=== PATIENT | male | born 1975 | race Hispanic/Latino ===

== ENCOUNTER 2021-07-02 23:29 | Inpatient (IN) ==
[2021-07-02] MEDS ORDERED: DEXAMETHASONE 10 MG/ML VIAL IV ONE (23:41)
[2021-07-02] MEDS ORDERED: ACETAMINOPHEN 325 MG TABLET PO ONE (23:47)
--- NOTE | 2021-07-02 23:47 | Emergency Department Note ---
HPI General Chief complaint: Shortness of Breath/Dyspnea Stated complaint: shortness of breath Time Seen by Provider: 07/02/21 23:40 Source: family Mode of arrival: EMS Limitations: no limitations History of Present Illness HPI Narrative: Narrative: 46 yo M w/ h/o possible autoimmune d/o (ongoing w/u) and COVID19 (Dx 06/13) p/w progressive SOB. He reports that he has been feeling SOB since the last week of May, which has been getting progressively worse, to the point that he is now unable to ambulate a few steps w/o markedly increased WOB and fatigue. He additionaly has a cough which he reports as "wet" but hasn't seen sputum, and body aches. He has not had any rapid worsening, just a slow progression. He called EMS tonight as he felt too SOB and when they arrived his RA SaO2 was 86%. He came up to the 90s w/ 6L NC en route. Related Data Previous Rx's Medication Instructions Recorded albuterol sulfate 90 mcg/actuation 2 puff INHALATION .q4-6h PRN #8.5 g 06/13/21 aerosol inhaler Allergies Allergy/AdvReac Type Severity Reaction Status Date / Time No Known Drug Allergies Allergy Verified 06/13/21 14:04 Review of Systems ROS ROS Narrative: Narrative: All systems ED: reviewed and negative except as stated. [facility] Narrative Patient History Narrative: Narrative: Medical/Surgical/Family History All Active Problems (Updated 07/03/21 @ 03:10 by Delano Bernal MD) Acute dyspnea (Acute) Pneumonia due to 2019 novel coronavirus (Acute) Cough (Acute) Community acquired bacterial pneumonia (Acute) Open wound (Acute) Bullae (Acute) Bilateral leg pain (Acute) Bilateral leg edema (Acute) Maxillary sinusitis (Acute) Dyspnea (Acute) Upper respiratory infection (Acute) Urinary retention due to benign prostatic hyperplasia (Acute) Medical History Autoimmune disease Cough Surgical History History of lumbar spinal fusion Family History Other Unknown family medical history Social History Smoking Status: Current every day smoker Alcohol Intake Frequency: 0-2 drinks per day Substance Use: does not use Exam Narrative Narrative: Narrative: General Limitations: no limitations General appearance: Present alert and in distress (mild d/t SOB) Head Head: Present atraumatic and normocephalic ENT ENT: Present normal oropharynx and mucous membranes moist Chest Chest: Present normal inspection and symmetric chest wall rise Respiratory Respiratory: Present normal lung sounds bilaterally and other (no respiratory distress but increased WOB w/ 4-5 word dyspnea); Absent rales/crackles, wheezes and stridor Cardiovascular Cardiovascular: Present regular rate, normal rhythm, +S1, +S2 and other (2+ B/L radial pulses); Absent systolic murmur and diastolic murmur Adbominal Abdominal: Present soft and normal bowel sounds; Absent distention and tenderness Extremities Extremities: Absent pedal edema Neurological Neurological: Present alert and oriented X3 Psychiatric Psychiatric: Present normal affect Skin Skin: Present warm (WNL) and dry Course Vital Signs Vital signs: Vital Signs Temperature 102.7 F H 07/02/21 23:33 Pulse Rate 107 H 07/02/21 23:33 Respiratory Rate 24 H 07/02/21 23:33 Blood Pressure 137/79 07/02/21 23:33 Pulse Oximetry (%) 94 07/02/21 23:33 Temperature 102.7 F H 07/03/21 00:03 Pulse Rate 57 L 07/03/21 03:32 Respiratory Rate 25 H 07/03/21 03:32 Blood Pressure 98/62 07/03/21 03:32 Pulse Oximetry (%) 98 07/03/21 03:32 MDM MDM Narrative Medical decision making narrative: Narrative: 46 yo COVID + M p/w increasing SOB, hypoxia. DDx - COVID19, PE, myocarditis, sepsis, PNA Pt presented w/ increased WOB, sats in the 90s on 5L NC. His Hx was strongly suggestive of COVID19 PNA. While his rapid test here was negative, he had a positive PCR on 06/13, and his CXR was c/w COVID19. While proceeding w/ W/U I started him empirically on a dose of decadron 6mg IV. I considered PE but there was not a sudden worsening in his SX, and he was responding well to NC supplementation. Additionally his EKG showed no strong evidence of R heart strain, and other than COVID19 he did not have any apparent risk factors for PE. I did not feel that CTA was indicated. I checked an EKG, which showed no evidence of ischemia. I considered myocarditis/pericarditis but this was unlikely w/ no peripheral edema, no tachycardia out of proportion to fever, no cardiomegaly on CXR. While pt met SIRS criteria, his overall picture was c/w COVID19. I did not feel that bacterial PNA was likely, and noted that he had already been Tx'd empirically for PNA w/ doxycycline while his COVID test was pending. Thus I did not feel that abx were indicated here. I did note that he had some mild asymptomatic hyponatremia, but IVF were not required for this. I reviewed his case w/ Dr Mancilla our hospitalist. He agreed w/ local admission here to med surg w/ plan to move up to PCU PRN. We discussed the option of remdesivir and both agreed this was reasonable. He requested that I add on a CRP and BMP for him to F/U on. Pt has remained stable through his ED evaluation. Lab Data Lab results reviewed: Yes I reviewed the patient's lab results. Result diagrams: 07/02/21 23:58 07/02/21 23:58 Labs: Lab Results 07/02/21 07/02/21 07/02/21 Range/Units 23:58 23:58 23:58 WBC 13.8 H (4.5-11.0) K/mcL RBC 4.93 (4.63-6.08) M/mcL Hgb 13.3 L (13.7-17.5) g/dL Hct 39.3 L (40.1-51.0) % MCV 79.7 L (80.0-100.0) fL MCH 27.0 (26.0-34.0) pg MCHC 33.8 (31.0-36.0) g/dL RDW 14.6 H (11.5-14.5) % Plt Count 425 (140-440) K/mcL MPV 10.6 H (7.4-10.4) fL Neut % (Auto) 89.4 H (38.0-78.0) % Lymph % (Auto) 5.5 L (15.5-49.0) % [place] % (Auto) 5.0 (1.0-12.0) % Eos % (Auto) 0 (0.0-7.0) % Baso % (Auto) 0.1 (0.0-2.0) % Lymph # (Auto) 0.76 L (1.50-4.80) K/mcL [place] # (Auto) 0.69 (0.10-0.90) K/mcL Eos # (Auto) 0 (0.00-0.70) K/mcL Baso # (Auto) 0.01 (0.00-0.30) K/mcL Absolute Neutrophils 12.38 H (1.80-8.00) K/mcL ABG Methemoglobin (0.4-1.5) % VBG pH (7.32-7.42) U VBG pCO2 (41.0-51.0) mmHg VBG pO2 (25.0-40.0) mmHg VBG HCO3 (24.0-28.0) mmol/L VBG Total CO2 (25.0-29.0) mmol/L VBG O2 Saturation (40.0-70.0) % VBG Base Excess (-2-2) VBG Lactic Acid 2.0 (0.5-2.0) mmol/L Carboxyhemoglobin (0.0-1.5) % THgb Total Hemoglobin (13.5-16.5) gm/Dl Sodium 126 L (133-145) mmol/L Potassium 4.2 (3.3-5.1) mmol/L Chloride 87 L (96-108) mmol/L Carbon Dioxide 24 (22-30) mmol/L Anion Gap 15.0 (8.0-16.0) BUN 11 (6-20) mg/dL Creatinine 0.8 (0.7-1.2) mg/dL GFR Calculation 105 Glucose 177 H (70-105) mg/dL Calcium 8.3 L (8.6-10.4) mg/dL Total Bilirubin 0.7 (0.1-1.0) mg/dL AST 86 H (<40) U/L ALT 59 H (<40) U/L Alkaline Phosphatase 265 H (39-117) U/L C-React Prot High Sens (1.0-3.0) mg/L Total Protein 5.9 (5.9-8.4) gm/dL Albumin 2.8 L (3.2-5.2) gm/dL Globulin 3.1 (2.2-3.7) gm/dL Albumin/Globulin Ratio 0.9 L (1.0-2.3) Procalcitonin (<0.10) ng/mL 07/02/21 07/03/21 07/03/21 Range/Units 23:58 03:05 03:06 WBC (4.5-11.0) K/mcL RBC (4.63-6.08) M/mcL Hgb (13.7-17.5) g/dL Hct (40.1-51.0) % MCV (80.0-100.0) fL MCH (26.0-34.0) pg MCHC (31.0-36.0) g/dL RDW (11.5-14.5) % Plt Count (140-440) K/mcL MPV (7.4-10.4) fL Neut % (Auto) (38.0-78.0) % Lymph % (Auto) (15.5-49.0) % [place] % (Auto) (1.0-12.0) % Eos % (Auto) (0.0-7.0) % Baso % (Auto) (0.0-2.0) % Lymph # (Auto) (1.50-4.80) K/mcL [place] # (Auto) (0.10-0.90) K/mcL Eos # (Auto) (0.00-0.70) K/mcL Baso # (Auto) (0.00-0.30) K/mcL Absolute Neutrophils (1.80-8.00) K/mcL ABG Methemoglobin 0.3 L (0.4-1.5) % VBG pH 7.49 H (7.32-7.42) U VBG pCO2 34.5 L (41.0-51.0) mmHg VBG pO2 132.6 H (25.0-40.0) mmHg VBG HCO3 25.7 (24.0-28.0) mmol/L VBG Total CO2 26.8 (25.0-29.0) mmol/L VBG O2 Saturation 93.5 H (40.0-70.0) % VBG Base Excess 3 H (-2-2) VBG Lactic Acid (0.5-2.0) mmol/L Carboxyhemoglobin 5.1 H (0.0-1.5) % THgb Total Hemoglobin 11.9 L (13.5-16.5) gm/Dl Sodium (133-145) mmol/L Potassium (3.3-5.1) mmol/L Chloride (96-108) mmol/L Carbon Dioxide (22-30) mmol/L Anion Gap (8.0-16.0) BUN (6-20) mg/dL Creatinine (0.7-1.2) mg/dL GFR Calculation Glucose (70-105) mg/dL Calcium (8.6-10.4) mg/dL Total Bilirubin (0.1-1.0) mg/dL AST (<40) U/L ALT (<40) U/L Alkaline Phosphatase (39-117) U/L C-React Prot High Sens 179.1 H (1.0-3.0) mg/L Total Protein (5.9-8.4) gm/dL Albumin (3.2-5.2) gm/dL Globulin (2.2-3.7) gm/dL Albumin/Globulin Ratio (1.0-2.3) Procalcitonin 0.64 H (<0.10) ng/mL ED POC Tests ED POC Tests: RITESH - SARS Antigen Negative CC TIME Critical Care Time Critical Care Time: Yes Total Critical Care Time: 35 Attestation: The very real possibility of disability or existed without emergent intervention. Organ systems at risk included pulmonary. Interventions included supplemental O2, decadron, reviewing of labs and imaging, and d/w hospitalist. No procedures were required. Discharge Plan Patient/Caregiver Discharge Instructions Pt seen by MOTOR VEHICLE TECHNICIAN/PA only: No Clinical Impression: Acute dyspnea, Pneumonia due to 2019 novel coronavirus Patient Disposition: Xfer As Inpt ([facility]) Condition: Serious Discharge Date/Time: 07/03/21 03:39
[2021-07-03 01:30] LABS: Basophils # (Auto) 0.01 K/mcL (0.00-0.30); Basophils % (Auto) 0.1 % (0.0-2.0); Eosinophils # (Auto) 0 K/mcL (0.00-0.70); Eosinophils % (Auto) 0 % (0.0-7.0); Hematocrit 39.3 % (40.1-51.0); Hemoglobin 13.3 g/dL (13.7-17.5); Lymphocytes # (Auto) 0.76 K/mcL (1.50-4.80); Lymphocytes % (Auto) 5.5 % (15.5-49.0); Mean Cell Volume 79.7 fL (80.0-100.0); Mean Corpuscular HGB Conc 33.8 g/dL (31.0-36.0); Mean Platelet Volume 10.6 fL (7.4-10.4); Monocytes # (Auto) 0.69 K/mcL (0.10-0.90); Platelet Count 425 K/mcL (140-440); RBC 4.93 M/mcL (4.63-6.08); Red Cell Distribution Width 14.6 % (11.5-14.5); WBC 13.8 K/mcL (4.5-11.0)
[2021-07-03 01:44] LABS: ALT/SGPT 59 U/L (<40); AST/SGOT 86 U/L (<40); Albumin 2.8 gm/dL (3.2-5.2); Albumin/Globulin Ratio 0.9 (1.0-2.3); Alkaline Phosphatase 265 U/L (39-117); Bilirubin,Total 0.7 mg/dL (0.1-1.0); Blood Urea Nitrogen 11 mg/dL (6-20); Calcium 8.3 mg/dL (8.6-10.4); Carbon Dioxide 24 mmol/L (22-30); Chloride 87 mmol/L (96-108); Globulin 3.1 gm/dL (2.2-3.7); Glomerular Filtration Rate 105; Glucose 177 mg/dL (70-105)
[2021-07-03] MEDS ORDERED: REMDESIVIR 200 MG in 0.9 % SODIUM CHLORIDE 250 ML IV ONE (02:49)
[2021-07-03] MEDS ORDERED: ACETAMINOPHEN 325 MG TABLET PO PRN (02:56)
[2021-07-03 03:32] LABS: ABG Methemoglobin 0.3 % (0.4-1.5); Total Hemoglobin 11.9 gm/Dl (13.5-16.5); VBG Base Excess 3 (-2-2); VBG HCO3 25.7 mmol/L (24.0-28.0); VBG Oxygen Saturation 93.5 % (40.0-70.0); VBG PCO2 34.5 mmHg (41.0-51.0); VBG PH 7.49 U (7.32-7.42); VBG PO2 132.6 mmHg (25.0-40.0); VBG Total CO2 26.8 mmol/L (25.0-29.0)
--- NOTE | 2021-07-03 07:45 | XRay Report ---
HISTORY: COVID pneumonia, cough, shortness of breath FINDINGS: Moderate diffuse alveolar infiltrates are present in both lungs. This has a patchy distribution. These have become worse bilaterally since 06/13/21. Lung volumes are normal. No pleural effusion is present. The heart size is normal. No adenopathy is detected. IMPRESSION: Worsening bilateral pneumonia Interpreted and Authenticated by: Yosef Rankin 07/03/21
[2021-07-03] MEDS ORDERED: ONDANSETRON 4 MG/2 ML VIAL IV PRN ×2 (07:57→15:44)
[2021-07-03] MEDS ORDERED: ALBUTEROL SULFATE 2.5 MG/3 ML NEBULIZER NEB PRN ×2 (07:57→15:44)
[2021-07-03 08:48] LABS: Neutrophils % (Auto) 89.4 % (38.0-78.0)
[2021-07-03] MEDS ORDERED: ENOXAPARIN 40 MG/0.4 ML SYRINGE SQ SCH (09:00)
[2021-07-03] MEDS ORDERED: DEXAMETHASONE 10 MG/ML VIAL IV SCH (09:00)
[2021-07-03] MEDS ORDERED: DOCUSATE SODIUM 100 MG CAPSULE PO SCH (09:00)
[2021-07-03] MEDS ORDERED: cefTRIAXone 2 GM in DEXTROSE 5% IN WATER 50 ML IV SCH (09:00)
[2021-07-03 09:49] LABS: Blood Urea Nitrogen 13 mg/dL (6-20); Calcium 8.4 mg/dL (8.6-10.4); Carbon Dioxide 23 mmol/L (22-30); Chloride 95 mmol/L (96-108); Glomerular Filtration Rate 119; Glucose 177 mg/dL (70-105)
[2021-07-03] MEDS ORDERED: AZITHROMYCIN 500 MG in DEXTROSE 5% IN WATER 250 ML IV SCH (10:00)
[2021-07-03 10:37] LABS: ALT/SGPT 64 U/L (<40); AST/SGOT 88 U/L (<40); Alkaline Phosphatase 246 U/L (39-117)
[2021-07-03] MEDS ORDERED: IOPAMIDOL 100 ML BOTTLE IV ONE ×2 (13:28→15:44)
--- NOTE | 2021-07-03 13:37 | Cat Scan Report ---
History: COVID pneumonia, acute hypoxia, elevated serum d-dimer level, evaluate for pulmonary emboli TECHNIQUE: Following injection of intravenous nonionic contrast, pulmonary arterial phase images were acquired. Sagittal, coronal and axial MIPS images were created. The radiation exposure was limited using dose reduction technology. FINDINGS: The pulmonary arteries are normal in caliber and there are no intraluminal filling defects. The aorta is normal in caliber. There is no atherosclerosis aneurysm or dissection. The heart is normal in size and contour. No pleural or pericardial effusion are present. The patient has moderate bilateral pneumonia. There is a mosaic distribution of groundglass alveolar infiltrates throughout both lungs. There is sparing of the right upper lobe. The greatest consolidation is in the medial basal segments of both lower lobes. There is also mild bronchial wall thickening in both lung bases due to bronchitis. There is no mucus plugging. The mainstem bronchi and trachea are normal. No pleural effusion or pneumothorax are present. There are a few small reactive lymph nodes in both haider and mediastinum. IMPRESSION: No evidence of pulmonary emboli Moderate widespread COVID pneumonia Interpreted and Authenticated by: Yosef Rankin 07/03/21
[2021-07-03] MEDS ORDERED: 0.9 % SODIUM CHLORIDE 10 ML SYRINGE IV SCH (14:00)
[2021-07-03] MEDS ORDERED: 0.9 % SODIUM CHLORIDE 1,000 ML IV SCH ×2 (14:45→15:44)
--- NOTE | 2021-07-03 14:45 | Internal Med History&Physical ---
HPI History of Present Illness Patient information: Note initiated : 07/03/21 at 2:45 pm Service Date, if different from initiated Date: [] Patient: Cash Ruvalcaba a 46 y/o M admitted on 07/03/21 for shortness of breath. Chief Complaint: [] History of present illness: Mr. Ruvalcaba is a 46 year old with a history of possible autoimmune disease only undergoing work-up, and in 19 diagnosed at 06/13/21 with a SARS-CoV-2 PCR who presented to the ED for progressive shortness of breath. Patient was found to be hypoxic in the ED, initially requiring 6 L/min nasal cannula oxygen. Work-up in the ED included CBC which showed leukocytosis, chemistry panel showed hyponatremia, evaded D-dimer 1.14, chest x- ray showed bilateral pulmonary infiltrates. Patient also had a CTA of his chest which was negative for PE but consistent with COVID-19 pneumonia. Pro calcitonin was 0.64, CRP 15.1. SARS-CoV-2 PCR, both ADAMS and PANTHER, resulted as not detected. Respiratory panel resulted as not detected for influenza A and B, parainfluenza, human metapneumovirus, adenovirus. Rhinovirus was detected. The patient was started on IV fluids, admitted for acute hypoxic respiratory failure secondary likely secondary to ARDS presumably secondary to recent COVID-19. Review of systems: unable to obtain due to lethargy Physical exam General: Difficult to arouse 46-year-old male. Head: Atraumatic, normal inspection. Eyes: normal appearance, no scleral icterus. Neck: full ROM Respiratory: nasal canula oxygen in no apparent respiratory distress. Cardiovascular: normal rate and rhythm, S1, S2. GI/Abdominal: soft, nontender, no guarding. Extremities: full range of motion, nontender. Neurological: CN II-XII intact, intact motor, intact sensation. Psychiatric: lethargic Skin: warm, normal color PFSH PFSH All Active Problems (Updated 07/03/21 @ 03:10 by Delano Bernal MD) Acute dyspnea (Acute) Pneumonia due to 2019 novel coronavirus (Acute) Cough (Acute) Community acquired bacterial pneumonia (Acute) Open wound (Acute) Bullae (Acute) Bilateral leg pain (Acute) Bilateral leg edema (Acute) Maxillary sinusitis (Acute) Dyspnea (Acute) Upper respiratory infection (Acute) Urinary retention due to benign prostatic hyperplasia (Acute) Medical History Autoimmune disease Cough Surgical History History of lumbar spinal fusion Family History Other Unknown family medical history Social History alcohol intake frequency: 0-2 drinks per day substance use type: does not use MEDS/ALLERGIES Home Medications and Allergies Home Medications Medication Instructions Recorded Confirmed Type albuterol sulfate 90 mcg/actuation 2 puff INHALATION .q4-6h PRN #8.5 g 06/13/21 07/03/21 Rx aerosol inhaler Allergies Allergy/AdvReac Type Severity Reaction Status Date / Time No Known Drug Allergies Allergy Verified 06/13/21 14:04 EXAM Constitutional Vitals: Temp Pulse Resp BP Pulse Ox 97.4 F 53 L 18 90/59 95 07/03/21 12:00 07/03/21 12:00 07/03/21 12:00 07/03/21 12:00 07/03/21 12:00 DATA Data Completed and Pending Labs: Labs from last 24 hours 07/03/21 07/03/21 07/03/21 08:15 08:15 08:15 WBC RBC Hgb Hct MCV MCH MCHC RDW Plt Count MPV Neut % (Auto) Lymph % (Auto) [place] % (Auto) Eos % (Auto) Baso % (Auto) Lymph # (Auto) [place] # (Auto) Eos # (Auto) Baso # (Auto) Absolute Neutrophils D-Dimer 1.14 H ABG Methemoglobin VBG pH VBG pCO2 VBG pO2 VBG HCO3 VBG Total CO2 VBG O2 Saturation VBG Base Excess VBG Lactic Acid Carboxyhemoglobin Total Hemoglobin Sodium Potassium Chloride Carbon Dioxide Anion Gap BUN Creatinine GFR Calculation Glucose Calcium Total Bilirubin AST 88 H ALT 64 H Alkaline Phosphatase 246 H C-Reactive Protein 15.10 H C-React Prot High Sens Total Protein Albumin Globulin Albumin/Globulin Ratio Procalcitonin 07/03/21 07/03/21 07/03/21 08:15 03:06 03:05 WBC RBC Hgb Hct MCV MCH MCHC RDW Plt Count MPV Neut % (Auto) Lymph % (Auto) [place] % (Auto) Eos % (Auto) Baso % (Auto) Lymph # (Auto) [place] # (Auto) Eos # (Auto) Baso # (Auto) Absolute Neutrophils D-Dimer ABG Methemoglobin 0.3 L VBG pH 7.49 H VBG pCO2 34.5 L VBG pO2 132.6 H VBG HCO3 25.7 VBG Total CO2 26.8 VBG O2 Saturation 93.5 H VBG Base Excess 3 H VBG Lactic Acid Carboxyhemoglobin 5.1 H Total Hemoglobin 11.9 L Sodium 132 L Potassium 4.1 Chloride 95 L Carbon Dioxide 23 Anion Gap 14.0 BUN 13 Creatinine 0.6 L GFR Calculation 119 Glucose 177 H Calcium 8.4 L Total Bilirubin AST ALT Alkaline Phosphatase C-Reactive Protein C-React Prot High Sens 179.1 H Total Protein Albumin Globulin Albumin/Globulin Ratio Procalcitonin 07/02/21 07/02/21 07/02/21 23:58 23:58 23:58 WBC RBC Hgb Hct MCV MCH MCHC RDW Plt Count MPV Neut % (Auto) Lymph % (Auto) [place] % (Auto) Eos % (Auto) Baso % (Auto) Lymph # (Auto) [place] # (Auto) Eos # (Auto) Baso # (Auto) Absolute Neutrophils D-Dimer ABG Methemoglobin VBG pH VBG pCO2 VBG pO2 VBG HCO3 VBG Total CO2 VBG O2 Saturation VBG Base Excess VBG Lactic Acid 2.0 Carboxyhemoglobin Total Hemoglobin Sodium 126 L Potassium 4.2 Chloride 87 L Carbon Dioxide 24 Anion Gap 15.0 BUN 11 Creatinine 0.8 GFR Calculation 105 Glucose 177 H Calcium 8.3 L Total Bilirubin 0.7 AST 86 H ALT 59 H Alkaline Phosphatase 265 H C-Reactive Protein C-React Prot High Sens Total Protein 5.9 Albumin 2.8 L Globulin 3.1 Albumin/Globulin Ratio 0.9 L Procalcitonin 0.64 H 07/02/21 23:58 WBC 13.8 H RBC 4.93 Hgb 13.3 L Hct 39.3 L MCV 79.7 L MCH 27.0 MCHC 33.8 RDW 14.6 H Plt Count 425 MPV 10.6 H Neut % (Auto) 89.4 H Lymph % (Auto) 5.5 L [place] % (Auto) 5.0 Eos % (Auto) 0 Baso % (Auto) 0.1 Lymph # (Auto) 0.76 L [place] # (Auto) 0.69 Eos # (Auto) 0 Baso # (Auto) 0.01 Absolute Neutrophils 12.38 H D-Dimer ABG Methemoglobin VBG pH VBG pCO2 VBG pO2 VBG HCO3 VBG Total CO2 VBG O2 Saturation VBG Base Excess VBG Lactic Acid Carboxyhemoglobin Total Hemoglobin Sodium Potassium Chloride Carbon Dioxide Anion Gap BUN Creatinine GFR Calculation Glucose Calcium Total Bilirubin AST ALT Alkaline Phosphatase C-Reactive Protein C-React Prot High Sens Total Protein Albumin Globulin Albumin/Globulin Ratio Procalcitonin A/P Narrative A/P Narrative: Assessment: 46-year-old male recently diagnosed with COVID-19 on 06/13/2021 presented to the ED for progressive dyspnea now admitted for acute hypoxic respiratory failure likely secondary to ARDS due to recent COVID-19. Subsequent SARS-CoV-2 PCR were negative x2. Respiratory panel negative for influenza, parainfluenza, human metapneumovirus, adenovirus. Rhinovirus was detected however that would be an unusual cause for the patient's presentation. CTA chest was negative for pulmonary embolism however positive for moderate widespread pneumonia. #Acute hypoxic respiratory failure #Bilateral pneumonia with concern for ARDS #Recent COVID-19 (06/13/2021) -positive Noti 06/13 -negative Noti and Adams on 07/03 #Positive respiratory panel for rhinovirus -seems unlikely to explain the patient's presentation #Elevated procalcitonin #Negative nasal MRSA PCR #Concern for unspecified autoimmune disease -details are unclear Plan -Dexamethasone IV daily for now. -Oxygen supplementation w/ HFNC and repeat ABG. -Ceftriaxone and azithromycin for now. -Sputum and blood cultures. -IV fluid. -Check pro-BNP. -ECHO ordered. -Follow CBC and chemistry panel. -Pulmonology consult. -DVT ppx: lovenox -Code status: Ski Edge Painter Spent With Patient Time: Total time spent is greater than 50% in coordination of care (as docemilyn martine) at patient's floor/unit and/or counseling patient: QUALITY VTE Deep Vein Thrombosis/Pulmonary Embolism Present on Admission: No
[2021-07-03 19:00] LABS: proBNP 198.3 pg/mL (<125.0)
[2021-07-03] MEDS ORDERED: SENNOSIDES 1 TABLET PO SCH (21:00)
[2021-07-03] MEDS ORDERED: REMDESIVIR 100 MG in 0.9 % SODIUM CHLORIDE 250 ML IV SCH ×2 (21:00→22:00)
[2021-07-03] MEDS: DOCUSATE SODIUM 100 MG CAPSULE PO SCH (21:50)
[2021-07-03] MEDS: 0.9 % SODIUM CHLORIDE 10 ML SYRINGE IV SCH (21:50)
[2021-07-03] MEDS: SENNOSIDES 1 TABLET PO SCH (21:50)
[2021-07-03] MEDS ORDERED: ACETAMINOPHEN 325 MG TABLET PO ONE (23:12)
[2021-07-03] MEDS: ACETAMINOPHEN 325 MG TABLET PO PRN (23:29)
[2021-07-03] MEDS: guaiFENesin/CODEINE 10 ML UDC PO PRN (23:29)
[2021-07-04] MEDS: 0.9 % SODIUM CHLORIDE 10 ML SYRINGE IV SCH ×3 (05:20→22:04)
[2021-07-04 06:58] LABS: Hematocrit 37.1 % (40.1-51.0); Hemoglobin 12.2 g/dL (13.7-17.5); Mean Cell Volume 80.3 fL (80.0-100.0); Mean Corpuscular HGB Conc 32.9 g/dL (31.0-36.0); Mean Platelet Volume 10.6 fL (7.4-10.4); Platelet Count 367 K/mcL (140-440); RBC 4.62 M/mcL (4.63-6.08); Red Cell Distribution Width 14.6 % (11.5-14.5); WBC 14.9 K/mcL (4.5-11.0)
[2021-07-04 07:56] LABS: ALT/SGPT 71 U/L (<40); AST/SGOT 99 U/L (<40); Albumin 2.1 gm/dL (3.2-5.2); Albumin/Globulin Ratio 0.8 (1.0-2.3); Alkaline Phosphatase 187 U/L (39-117); Bilirubin,Direct < 0.2 mg/dL (0-0.3); Bilirubin,Total 0.3 mg/dL (0.1-1.0); Blood Urea Nitrogen 18 mg/dL (6-20); Calcium 8.4 mg/dL (8.6-10.4); Carbon Dioxide 22 mmol/L (22-30); Chloride 96 mmol/L (96-108); Globulin 2.8 gm/dL (2.2-3.7); Glomerular Filtration Rate 128; Glucose 207 mg/dL (70-105); Lactate Dehydrogenase 259 U/L (135-225); Phosphorous 3.6 mg/dL (2.5-4.5); Triglycerides 127 mg/dL (<150); Uric Acid 4.2 mg/dL (2.5-8.0)
[2021-07-04] MEDS: guaiFENesin/CODEINE 10 ML UDC PO PRN ×2 (08:31→17:31)
[2021-07-04] MEDS: ENOXAPARIN 40 MG/0.4 ML SYRINGE SQ SCH (08:31)
[2021-07-04] MEDS: DOCUSATE SODIUM 100 MG CAPSULE PO SCH ×3 (08:32→22:03)
[2021-07-04] MEDS ORDERED: DEXAMETHASONE 10 MG/ML VIAL IV SCH (09:00)
[2021-07-04] MEDS ORDERED: cefTRIAXone 2 GM in DEXTROSE 5% IN WATER 50 ML IV SCH (09:00)
[2021-07-04 09:11] LABS: Band Neutrophils % 3 % (0-10); Lymphocytes % 7 % (15-49); Monocytes % (Manual) 3 % (1-12); Platelet Estimate NORMAL (Normal); RBC Morphology NORMAL (Normal); Segmented Neutrophils % 87 % (38-78)
[2021-07-04] MEDS ORDERED: AZITHROMYCIN 500 MG in DEXTROSE 5% IN WATER 250 ML IV SCH (10:00)
--- NOTE | 2021-07-04 11:05 | Consultation ---
DATE OF CONSULTATION: 07/04/2021 HISTORY OF PRESENT ILLNESS: The patient is a 46-year-old gentleman who presented to the hospital on 07/02/2021. He was found to have significant radiographic abnormalities and to be hypoxic and was considered a candidate for admission. His history was that of having had a COVID-19 positive swab on 06/13/2021. He had been presumably sent home to convalesce and returned with difficulties. In the emergency room, he required 6 liters of oxygen. Workup included his chest radiograph and because of elevated D-dimer, a CT angiogram of the chest which did not demonstrate pulmonary emboli, but did demonstrate significant radiographic infiltrates in a pattern consistent with COVID pneumonia. He had elevation of inflammatory mediators including a CRP at 15.1 and a procalcitonin at 0.64. He was admitted and initiated on what appears to be remdesivir, dexamethasone, and because routine bacterial infection cannot be excluded, ceftriaxone and azithromycin. Additional workup including negative panels for influenza A, B, parainfluenza, adenovirus, rhinovirus/RSV. The patient had a subsequent increase in FiO2 requirement and consultation was placed to pulmonary. The patient's past history includes a question of autoimmune disease. He reports seeing a Dr. Verduzco at [facility] in [place] and these records will be sought. He describes receiving Rituxan therapy for some sort of autoimmune disorder. Apparently, approximately 5 years ago, he chose to stop seeking healthcare and has not had much in the way of evaluation or intervention in a window intervening. The patient reports a prolonged tobacco use history with smoking up to five packs of cigarettes a day at one point in time. He has not smoked since his diagnosis of COVID-19. 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 He denies unusual travel or unusual items in his home or hobbies. He has occasional symptomatic gastroesophageal reflux disease and sleeps flat with one pillow or sometimes propped up on the couch. He denies significant known cardiac disease. Review of records, including a chest x-ray 2017 (08/19/2018) which appears normal, and a chest x-ray 12/31/2020 which suggests a bilateral lower lobe infiltrate as a new finding in December of this year. I am uncertain whether this is an issue that progressed or resolved as he has not sought close connection to health care. Again, reviewing current data, he did have elevated white count, inflammatory mediators, abnormal chest x-ray and testing demonstrating recent COVID-19, but more current testing suggesting perhaps resolution of the acute viral process. It may be that he is into the cytokine storm post-COVID. Dexamethasone is certainly warranted in that regard. Consideration if available to order interleukin-6 to see if there is more evidence for the post-COVID immune reaction would be interesting if available. REVIEW OF SYSTEMS: Negative except as recorded above on questioning in detailed fashion. PHYSICAL EXAMINATION: GENERAL: The patient is a mildly dyspneic, stated age-appearing male with high-flow oxygen in place. HEAD: Atraumatic and normocephalic. EYES: Some scleral injection, but otherwise benign. NECK: Supple. LUNGS: Decreased breath sounds in all lung mary with occasional rhonchi scattered and occasional interstitial sound. HEART: Regular. S1, S2. No apparent gallop. Heart rate 97. No jugular venous distention or dependent edema, perhaps appears a bit dry overall. ABDOMEN: Soft. Bowel sounds are present. Liver and spleen not palpable. BONES, JOINTS AND EXTREMITIES: Slightly cooler right foot than left, but good pulses bilaterally. NEUROLOGICAL: Nonfocal. LABORATORY DATA: As previously commented above showing acute lung injury secondary to post-viral pneumonia/COVID versus robust inflammatory response to that illness versus issue related to previously as yet unclarified autoimmune disease. RECOMMENDATIONS: At this time, I agree with a somewhat broad antibiotic coverage with ceftriaxone and azithromycin while cultures and clinical course evolves. Agree with current steroid therapy. Will need to observe and follow with and manage other fluid dynamics and such carefully. Records from his previous autoimmune disease might be clarifying. At this time, I do not have other suggestion for therapeutic intervention other than considering perhaps CPAP therapy to try and preserve alveolar spaces from flooding to help with FiO2. As discuss and follow with. Thank you for the opportunity to participate in the care of this ill gentleman. ARMANDO:pk Job ID: [id number] Doc ID: [id number] MD CAITLIN Reese
[2021-07-04] MEDS ORDERED: DEXAMETHASONE 4 MG/ML VIAL IV ONE (15:00)
[2021-07-04] MEDS ORDERED: ACETYLCYSTEINE 800 MG/4 ML VIAL NEB SCH (15:00)
--- NOTE | 2021-07-04 15:01 | Internal Med Progress Note ---
SUBJECTIVE Subjective Patient information: Note initiated : 07/04/21 at 2:55 pm Service Date, if different from initiated Date: [] Patient: Cash Ruvalcaba 46 y/o M admitted on 07/03/21 for shortness of breath. Chief Complaint: [] Interval history: Mr. Ruvalcaba is a 46 year old with a history of possible autoimmune disease only undergoing work-up, and in 19 diagnosed at 06/13/21 with a SARS-CoV-2 PCR who presented to the ED for progressive shortness of breath. Patient was found to be hypoxic in the ED, initially requiring 6 L/min nasal cannula oxygen. Work-up in the ED included CBC which showed leukocytosis, chemistry panel showed hyponatremia, evaded D-dimer 1.14, chest x-ray showed bilateral pulmonary infiltrates. Patient also had a CTA of his chest which was negative for PE but consistent with COVID-19 pneumonia. Procalcitonin was 0.64, CRP 15.1. SARS-CoV-2 PCR, both [place] and [place], resulted as not detected. Respiratory panel resulted as not detected for influenza A and B, parainfluenza, human metapneumovirus, adenovirus. Rhinovirus was detected. The patient was started on IV fluids, admitted for acute hypoxic respiratory failure secondary likely secondary to ARDS presumably secondary to recent COVID-19. 07/04: The patient was transferred to the PCU late yesterday for increased oxygen requirement, now on HFNC. Increased Dexamethasone to 20 mg IV and antibiotics to Cefepime and Azithromycin. Sputum cultures, including fungal cultures ordered, YUMIKO and ANCA ordered. Discussed with pulmonology at [facility] in [place]-no beds for transfer but recommended trying higher dose systemic steroid as ordered. TTE resulted-relatively normal ECHO. Physical exam General:46-year-old male in no distress. Head: Atraumatic, normal inspection. Eyes: normal appearance, no scleral icterus. Neck: full ROM Respiratory: nasal canula oxygen in no apparent respiratory distress. Cardiovascular: normal rate and rhythm, S1, S2. GI/Abdominal: soft, nontender, no guarding. Extremities: full range of motion, nontender. Neurological: CN II-XII intact, intact motor, intact sensation. Psychiatric: lethargic Skin: warm, normal color Constitutional Vitals: Vital Signs Temp Pulse Resp BP Pulse Ox 96.9 F L 56 L 25 H 106/69 93 07/04/21 11:14 07/04/21 11:14 07/04/21 11:14 07/04/21 10:00 07/04/21 11:14 Period Temp Pulse Resp BP Sys/Rosa Pulse Ox Last 24 Hr 96.6 F-98.1 F 42-97 12-29 87-135/52-89 89-100 Intake and Output 07/04/21 07/04/21 07/04/21 05:59 13:59 21:59 Intake Total 2040 836 Output Total 326 475 Balance 1714 361 Weight 98.883 kg Patient Weight 07/05/21 05:59 Weight 98.883 kg Intake & Output: Intake & Output 07/04/21 07/04/21 07/04/21 05:59 13:59 21:59 Intake Total 2040 836 Output Total 326 475 Balance 1714 361 Weight 98.883 kg Intake: IV 1000 300 Sodium Chloride 0.9% 1,000 ml @ 1000 125 mls/hr IV .Q8H [facility] Rx#: [id number] Zithromax 500 mg In Dextrose 5% 250 in Water 250 ml @ 250 mls/hr IV Q24H [facility] Rx#:[id number] Rocephin 2 gm In Dextrose 5% in 50 Water 50 ml @ 100 mls/hr IV DAILY [facility] Rx#:[id number] Oral 1040 536 Output: Void Amount 325 475 # of times incontinent of urine 1 Other: Meal snack Breakfast Percent of Meal Consumed 75% 75% Feeding Ability Independent Independent Urine Appearance Clear Clear Urine Color Bright Yellow Dark Alyson Urine Odor Normal Normal OBJ DATA Labs CBC & Chem 7: 07/04/21 05:17 07/04/21 05:17 Labs: Abnormal Lab Results 07/04/21 07/04/21 07/03/21 05:17 05:17 17:40 WBC 14.9 H RBC 4.62 L Hgb 12.2 L Hct 37.1 L MCV RDW 14.6 H MPV 10.6 H Neut % (Auto) Lymph % (Auto) Lymph # (Auto) Seg Neutrophils % 87 H Lymphocytes % 7 L Absolute Neutrophils D-Dimer ABG Methemoglobin VBG pH VBG pCO2 VBG pO2 VBG O2 Saturation VBG Base Excess Carboxyhemoglobin Total Hemoglobin Sodium 129 L Chloride Creatinine 0.5 L Glucose 207 H Calcium 8.4 L GGT 109 H AST 99 H ALT 71 H Alkaline Phosphatase 187 H Lactate Dehydrogenase 259 H C-Reactive Protein 7.80 H C-React Prot High Sens NT-Pro-B Natriuret Pep 198.3 H Total Protein 4.9 L Albumin 2.1 L Albumin/Globulin Ratio 0.8 L Procalcitonin 07/03/21 07/03/21 07/03/21 08:15 08:15 08:15 WBC RBC Hgb Hct MCV RDW MPV Neut % (Auto) Lymph % (Auto) Lymph # (Auto) Seg Neutrophils % Lymphocytes % Absolute Neutrophils D-Dimer 1.14 H ABG Methemoglobin VBG pH VBG pCO2 VBG pO2 VBG O2 Saturation VBG Base Excess Carboxyhemoglobin Total Hemoglobin Sodium Chloride Creatinine Glucose Calcium GGT AST 88 H ALT 64 H Alkaline Phosphatase 246 H Lactate Dehydrogenase C-Reactive Protein 15.10 H C-React Prot High Sens NT-Pro-B Natriuret Pep Total Protein Albumin Albumin/Globulin Ratio Procalcitonin 07/03/21 07/03/21 07/03/21 08:15 03:06 03:05 WBC RBC Hgb Hct MCV RDW MPV Neut % (Auto) Lymph % (Auto) Lymph # (Auto) Seg Neutrophils % Lymphocytes % Absolute Neutrophils D-Dimer ABG Methemoglobin 0.3 L VBG pH 7.49 H VBG pCO2 34.5 L VBG pO2 132.6 H VBG O2 Saturation 93.5 H VBG Base Excess 3 H Carboxyhemoglobin 5.1 H Total Hemoglobin 11.9 L Sodium 132 L Chloride 95 L Creatinine 0.6 L Glucose 177 H Calcium 8.4 L GGT AST ALT Alkaline Phosphatase Lactate Dehydrogenase C-Reactive Protein C-React Prot High Sens 179.1 H NT-Pro-B Natriuret Pep Total Protein Albumin Albumin/Globulin Ratio Procalcitonin 07/02/21 07/02/21 07/02/21 23:58 23:58 23:58 WBC 13.8 H RBC Hgb 13.3 L Hct 39.3 L MCV 79.7 L RDW 14.6 H MPV 10.6 H Neut % (Auto) 89.4 H Lymph % (Auto) 5.5 L Lymph # (Auto) 0.76 L Seg Neutrophils % Lymphocytes % Absolute Neutrophils 12.38 H D-Dimer ABG Methemoglobin VBG pH VBG pCO2 VBG pO2 VBG O2 Saturation VBG Base Excess Carboxyhemoglobin Total Hemoglobin Sodium 126 L Chloride 87 L Creatinine Glucose 177 H Calcium 8.3 L GGT AST 86 H ALT 59 H Alkaline Phosphatase 265 H Lactate Dehydrogenase C-Reactive Protein C-React Prot High Sens NT-Pro-B Natriuret Pep Total Protein Albumin 2.8 L Albumin/Globulin Ratio 0.9 L Procalcitonin 0.64 H Meds: Medications Acetaminophen (Acetaminophen 325 Mg Tablet) 650 mg PO Q4-6HP PRN; Protocol PRN Reason: Per Pain Protocol Last Admin: 07/03/21 23:29 Dose: 650 mg Documented by: Acetylcysteine (Acetylcysteine 800 Mg/4 Ml Vial) 600 mg NEB TID [facility] Albuterol Sulfate (Albuterol Sulfate 2.5 Mg/3 Ml Nebulizer) 2.5 mg NEB Q2HP PRN PRN Reason: Shortness Of Breath Cefepime HCl (Cefepime 2 Gm Vial) 2 gm IV Q8H [facility]; Protocol Stop: 07/09/21 14:59 Dexamethasone (Dexamethasone 10 Mg/Ml Vial) 20 mg IV DAILY [facility] Stop: 07/08/21 09:01 Dexamethasone (Dexamethasone 10 Mg/Ml Vial) 10 mg IV DAILY [facility] Stop: 07/13/21 09:01 Dexamethasone (Dexamethasone 4 Mg/Ml Vial) 14 mg IV ONCE ONE Stop: 07/04/21 15:01 Docusate Sodium (Docusate Sodium 100 Mg Capsule) 100 mg PO BID [facility] Last Admin: 07/04/21 08:38 Dose: 100 mg Documented by: Enoxaparin Sodium (Enoxaparin 40 Mg/0.4 Ml Syringe) 40 mg SQ DAILY [facility] Last Admin: 07/04/21 08:31 Dose: 40 mg Documented by: Guaifenesin/Codeine Phosphate (Guaifenesin/Codeine 10 Ml Udc) 10 ml PO Q6HP PRN PRN Reason: Cough Last Admin: 07/04/21 08:31 Dose: 10 ml Documented by: Azithromycin 500 mg/ Dextrose 250 mls @ 250 mls/hr IV Q24H [facility]; Protocol Stop: 07/07/21 09:59 Ondansetron HCl (Ondansetron 4 Mg/2 Ml Vial) 4 mg IV Q6HP PRN PRN Reason: Nausea And Vomiting Senna (Sennosides 1 Tablet) 2 tab PO HS [facility] Last Admin: 07/03/21 21:50 Dose: 2 tab Documented by: Sodium Chloride (0.9 % Sodium Chloride 10 Ml Syringe) 10 ml IV Q8 [facility] Last Admin: 07/04/21 05:20 Dose: 10 ml Documented by: ABG Interpretation ABG results: 07/03/21 03:05 ABG Methemoglobin 0.3 L VBG pH 7.49 H VBG pCO2 34.5 L VBG pO2 132.6 H VBG HCO3 25.7 VBG Total CO2 26.8 VBG O2 Saturation 93.5 H VBG Base Excess 3 H A/P Narrative A/P Narrative: Assessment: 46-year-old male recently diagnosed with COVID-19 on 06/13/2021 presented to the ED for progressive dyspnea now admitted for acute hypoxic respiratory failure likely secondary to ARDS due to recent COVID-19. Subsequent SARS-CoV-2 PCR were negative x2. Respiratory panel negative for influenza, parainfluenza, human metapneumovirus, adenovirus. Rhinovirus was detected however that would be an unusual cause for the patient's presentation. CTA chest was negative for pulmonary embolism however positive for moderate widespread pneumonia. #Acute hypoxic respiratory failure #Bilateral pneumonia with concern for ARDS #Recent COVID-19 (06/13/2021) -positive [place] 06/13 -negative [place] and [place] on 07/03 #Positive respiratory panel for rhinovirus -seems unlikely to explain the patient's presentation #Hyponatremia #Elevated procalcitonin #Negative nasal MRSA PCR #Concern for unspecified autoimmune disease -details are unclear however previously on Rituximab but discontinued it Plan -Increase Dexamethasone to 20 mg IV daily for 5 days then decrease to 10 mg daily for 5 days then taper if the patient improves. -Oxygen supplementation as needed. -Cefepime and azithromycin for now. -Mucomyst nebs TID. -Duonebs Q6 hrs. -Sputum bacterial and fungal cultures. -YUMIKO and ANCA w/ reflex. -Sputum and blood cultures. -Follow CBC and chemistry panel. -Pulmonology consulted. -DVT ppx: lovenox -Code status: Meat Butcher Spent With Patient Time: Total time spent is greater than 50% in coordination of care (as documented) at patient's floor/unit and/or counseling patient: QUALITY VTE Deep Vein Thrombosis/Pulmonary Embolism Present on Admission: No
[2021-07-04] MEDS: CEFEPIME 2 GM VIAL IV SCH ×2 (15:40→22:03)
[2021-07-04] MEDS: ACETAMINOPHEN 325 MG TABLET PO PRN (22:03)
[2021-07-04] MEDS: SENNOSIDES 1 TABLET PO SCH (22:03)
[2021-07-05] MEDS: guaiFENesin/CODEINE 10 ML UDC PO PRN (02:02)
[2021-07-05] MEDS: 0.9 % SODIUM CHLORIDE 10 ML SYRINGE IV SCH ×5 (04:58→22:10)
[2021-07-05] MEDS: CEFEPIME 2 GM VIAL IV SCH ×3 (05:33→22:09)
[2021-07-05 08:22] LABS: Hemoglobin 11.7 g/dL (13.7-17.5); Mean Corpuscular HGB Conc 32.5 g/dL (31.0-36.0); Mean Platelet Volume 10.8 fL (7.4-10.4); Platelet Count 345 K/mcL (140-440); RBC 4.39 M/mcL (4.63-6.08); Red Cell Distribution Width 14.7 % (11.5-14.5); WBC 11.7 K/mcL (4.5-11.0)
[2021-07-05 09:05] LABS: ALT/SGPT 65 U/L (<40); AST/SGOT 49 U/L (<40); Albumin 2.2 gm/dL (3.2-5.2); Albumin/Globulin Ratio 0.9 (1.0-2.3); Alkaline Phosphatase 174 U/L (39-117); Bilirubin,Direct < 0.2 mg/dL (0-0.3); Bilirubin,Total 0.2 mg/dL (0.1-1.0); Blood Urea Nitrogen 14 mg/dL (6-20); Calcium 8.3 mg/dL (8.6-10.4); Carbon Dioxide 23 mmol/L (22-30); Chloride 100 mmol/L (96-108); Globulin 2.4 gm/dL (2.2-3.7); Glomerular Filtration Rate 128; Glucose 240 mg/dL (70-105); Lactate Dehydrogenase 239 U/L (135-225); Phosphorous 3.4 mg/dL (2.5-4.5); Triglycerides 116 mg/dL (<150); Uric Acid 3.4 mg/dL (2.5-8.0)
--- NOTE | 2021-07-05 10:26 | EKG ---
[facility] Test Date: 2021-07-03 Pat Name: Cash Ruvalcaba Department: ED Room: Gender: Male [employer] Instructor: SE : 1975 Requested By: Delano Bernla Order Number: [id number] Reading MD: Ed Carr Measurements Intervals [place] Rate: 97 P: 68 DC: 152 QRS: -36 QRSD: 90 T: 42 QT: 332 QTc: 422 Interpretive Statements NSR Electronically Signed On 07-05-2021 10:26:20 PDT by Ed Carr /[id number]/[id number]
[2021-07-05 10:27] LABS: Anisocytosis 1+ (None Seen); Lymphocytes % 7 % (15-49); Monocytes % (Manual) 7 % (1-12); Platelet Estimate NORMAL (Normal); RBC Morphology ABNORMAL (Normal); Reactive Lymphocytes 1 % (0-2); Segmented Neutrophils % 85 % (38-78)
[2021-07-05] MEDS: DULoxetine 30 MG CAPSULE PO SCH (11:27)
[2021-07-05] MEDS: ENOXAPARIN 40 MG/0.4 ML SYRINGE SQ SCH (11:27)
[2021-07-05] MEDS: DOCUSATE SODIUM 100 MG CAPSULE PO SCH ×2 (11:28→22:09)
[2021-07-05] MEDS: DEXAMETHASONE 10 MG/ML VIAL IV SCH (11:28)
[2021-07-05] MEDS: AZITHROMYCIN 500 MG in DEXTROSE 5% IN WATER 250 ML IV SCH (11:29)
--- NOTE | 2021-07-05 14:22 | Internal Med Progress Note ---
SUBJECTIVE Subjective Patient information: Note initiated : 07/05/21 at 2:20 pm Service Date, if different from initiated Date: [] Patient: Cash Ruvalcaba a 46 y/o M admitted on 07/03/21 for shortness of breath. Chief Complaint: [] Interval history: Mr. Ruvalcaba is a 46 year old with a history of possible autoimmune disease only undergoing work-up, and in 19 diagnosed at 06/13/21 with a SARS-CoV-2 PCR who presented to the ED for progressive shortness of breath. Patient was found to be hypoxic in the ED, initially requiring 6 L/min nasal cannula oxygen. Work-up in the ED included CBC which showed leukocytosis, chemistry panel showed hyponatremia, evaded D-dimer 1.14, chest x-ray showed bilateral pulmonary infiltrates. Patient also had a CTA of his chest which was negative for PE but consistent with COVID-19 pneumonia. Procalcitonin was 0.64, CRP 15.1. SARS-CoV-2 PCR, both [place] and PANTHER, resulted as not detected. Respiratory panel resulted as not detected for influenza A and B, parainfluenza, human metapneumovirus, adenovirus. Rhinovirus was detected. The patient was started on IV fluids, admitted for acute hypoxic respiratory failure secondary likely secondary to ARDS presumably secondary to recent COVID-19. 07/04: The patient was transferred to the PCU late yesterday for increased oxygen requirement, now on HFNC. Increased Dexamethasone to 20 mg IV and antibiotics to Cefepime and Azithromycin. Sputum cultures, including fungal cultures ordered, YUMIKO and ANCA ordered. Discussed with pulmonology at [facility] in [place]-no beds for transfer but recommended trying higher dose systemic steroid as ordered. TTE resulted-relatively normal ECHO. 07/05: The patient feels better today, down to 4 L/min, resumed home Cymbalta, continues on high dose Dexamethasone. Physical exam General:46-year-old male in no distress. Head: Atraumatic, normal inspection. Eyes: normal appearance, no scleral icterus. Neck: full ROM Respiratory: nasal canula oxygen in no apparent respiratory distress. Cardiovascular: normal rate and rhythm, S1, S2. GI/Abdominal: soft, nontender, no guarding. Extremities: full range of motion, nontender. Neurological: CN II-XII intact, intact motor, intact sensation. Psychiatric: lethargic Skin: warm, normal color Constitutional Vitals: Vital Signs Temp Pulse Resp BP Pulse Ox 97.4 F 58 L 22 107/62 96 07/05/21 12:01 07/05/21 13:29 07/05/21 13:29 07/05/21 12:01 07/05/21 13:29 Period Temp Pulse Resp BP Sys/Rosa Pulse Ox Last 24 Hr 96.6 F-97.4 F 40-76 15-31 99-134/50-82 85-100 Intake and Output 07/05/21 07/05/21 07/05/21 05:59 13:59 21:59 Intake Total 240 430 Output Total 600 475 Balance -360 -45 Intake & Output: Intake & Output 07/05/21 07/05/21 07/05/21 05:59 13:59 21:59 Intake Total 240 430 Output Total 600 475 Balance -360 -45 Intake: Nourishment/Supplement quantity 240 (ml) IV 250 Zithromax 500 mg In Dextrose 5% 250 in Water 250 ml @ 250 mls/hr IV Q24H [facility] Rx#:[id number] Oral 0 180 Output: Void Amount 600 475 Other: Meal Breakfast Percent of Meal Consumed 100% Nourishment/Supplement name Ensure Clear Urine Appearance Clear Clear Urine Color Bright Yellow Dark Yellow Urine Odor Normal OBJ DATA Labs CBC & Chem 7: 07/05/21 05:03 07/05/21 05:03 Labs: Abnormal Lab Results 07/05/21 07/05/21 07/04/21 05:03 05:03 05:17 WBC 11.7 H RBC 4.39 L Hgb 11.7 L Hct 36.0 L MCV RDW 14.7 H MPV 10.8 H Neut % (Auto) Lymph % (Auto) Lymph # (Auto) Seg Neutrophils % 85 H Lymphocytes % 7 L Absolute Neutrophils RBC Morphology Abnormal A Anisocytosis 1+ A D-Dimer ABG Methemoglobin VBG pH VBG pCO2 VBG pO2 VBG O2 Saturation VBG Base Excess Carboxyhemoglobin Total Hemoglobin Sodium 129 L Chloride Creatinine 0.5 L 0.5 L Glucose 240 H 207 H Calcium 8.3 L 8.4 L GGT 96 H 109 H AST 49 H 99 H ALT 65 H 71 H Alkaline Phosphatase 174 H 187 H Lactate Dehydrogenase 239 H 259 H C-Reactive Protein 3.60 H 7.80 H C-React Prot High Sens NT-Pro-B Natriuret Pep Total Protein 4.6 L 4.9 L Albumin 2.2 L 2.1 L Albumin/Globulin Ratio 0.9 L 0.8 L Procalcitonin 07/04/21 07/03/21 07/03/21 05:17 17:40 08:15 WBC 14.9 H RBC 4.62 L Hgb 12.2 L Hct 37.1 L MCV RDW 14.6 H MPV 10.6 H Neut % (Auto) Lymph % (Auto) Lymph # (Auto) Seg Neutrophils % 87 H Lymphocytes % 7 L Absolute Neutrophils RBC Morphology Anisocytosis D-Dimer ABG Methemoglobin VBG pH VBG pCO2 VBG pO2 VBG O2 Saturation VBG Base Excess Carboxyhemoglobin Total Hemoglobin Sodium Chloride Creatinine Glucose Calcium GGT AST 88 H ALT 64 H Alkaline Phosphatase 246 H Lactate Dehydrogenase C-Reactive Protein C-React Prot High Sens NT-Pro-B Natriuret Pep 198.3 H Total Protein Albumin Albumin/Globulin Ratio Procalcitonin 07/03/21 07/03/21 07/03/21 08:15 08:15 08:15 WBC RBC Hgb Hct MCV RDW MPV Neut % (Auto) Lymph % (Auto) Lymph # (Auto) Seg Neutrophils % Lymphocytes % Absolute Neutrophils RBC Morphology Anisocytosis D-Dimer 1.14 H ABG Methemoglobin VBG pH VBG pCO2 VBG pO2 VBG O2 Saturation VBG Base Excess Carboxyhemoglobin Total Hemoglobin Sodium 132 L Chloride 95 L Creatinine 0.6 L Glucose 177 H Calcium 8.4 L GGT AST ALT Alkaline Phosphatase Lactate Dehydrogenase C-Reactive Protein 15.10 H C-React Prot High Sens NT-Pro-B Natriuret Pep Total Protein Albumin Albumin/Globulin Ratio Procalcitonin 07/03/21 07/03/21 07/02/21 03:06 03:05 23:58 WBC RBC Hgb Hct MCV RDW MPV Neut % (Auto) Lymph % (Auto) Lymph # (Auto) Seg Neutrophils % Lymphocytes % Absolute Neutrophils RBC Morphology Anisocytosis D-Dimer ABG Methemoglobin 0.3 L VBG pH 7.49 H VBG pCO2 34.5 L VBG pO2 132.6 H VBG O2 Saturation 93.5 H VBG Base Excess 3 H Carboxyhemoglobin 5.1 H Total Hemoglobin 11.9 L Sodium Chloride Creatinine Glucose Calcium GGT AST ALT Alkaline Phosphatase Lactate Dehydrogenase C-Reactive Protein C-React Prot High Sens 179.1 H NT-Pro-B Natriuret Pep Total Protein Albumin Albumin/Globulin Ratio Procalcitonin 0.64 H 07/02/21 07/02/21 23:58 23:58 WBC 13.8 H RBC Hgb 13.3 L Hct 39.3 L MCV 79.7 L RDW 14.6 H MPV 10.6 H Neut % (Auto) 89.4 H Lymph % (Auto) 5.5 L Lymph # (Auto) 0.76 L Seg Neutrophils % Lymphocytes % Absolute Neutrophils 12.38 H RBC Morphology Anisocytosis D-Dimer ABG Methemoglobin VBG pH VBG pCO2 VBG pO2 VBG O2 Saturation VBG Base Excess Carboxyhemoglobin Total Hemoglobin Sodium 126 L Chloride 87 L Creatinine Glucose 177 H Calcium 8.3 L GGT AST 86 H ALT 59 H Alkaline Phosphatase 265 H Lactate Dehydrogenase C-Reactive Protein C-React Prot High Sens NT-Pro-B Natriuret Pep Total Protein Albumin 2.8 L Albumin/Globulin Ratio 0.9 L Procalcitonin Meds: Medications Acetaminophen (Acetaminophen 325 Mg Tablet) 650 mg PO Q4-6HP PRN; Protocol PRN Reason: Per Pain Protocol Last Admin: 07/04/21 22:03 Dose: 650 mg Documented by: Albuterol Sulfate (Albuterol Sulfate 2.5 Mg/3 Ml Nebulizer) 2.5 mg NEB Q2HP PRN PRN Reason: Shortness Of Breath Last Admin: 07/04/21 16:31 Dose: 2.5 mg Documented by: Cefepime HCl (Cefepime 2 Gm Vial) 2 gm IV Q8H [facility]; Protocol Stop: 07/09/21 14:59 Last Admin: 07/05/21 05:33 Dose: 2 gm Documented by: Dexamethasone (Dexamethasone 10 Mg/Ml Vial) 20 mg IV DAILY [facility] Stop: 07/08/21 09:01 Last Admin: 07/05/21 11:28 Dose: 20 mg Documented by: Dexamethasone (Dexamethasone 10 Mg/Ml Vial) 10 mg IV DAILY [facility] Stop: 07/13/21 09:01 Docusate Sodium (Docusate Sodium 100 Mg Capsule) 100 mg PO BID [facility] Last Admin: 07/05/21 11:28 Dose: 100 mg Documented by: Duloxetine HCl (Duloxetine 30 Mg Capsule) 60 mg PO DAILY [facility] Last Admin: 07/05/21 11:27 Dose: 60 mg Documented by: Enoxaparin Sodium (Enoxaparin 40 Mg/0.4 Ml Syringe) 40 mg SQ DAILY [facility] Last Admin: 07/05/21 11:27 Dose: 40 mg Documented by: Guaifenesin/Codeine Phosphate (Guaifenesin/Codeine 10 Ml Udc) 10 ml PO Q6HP PRN PRN Reason: Cough Last Admin: 07/05/21 02:02 Dose: 10 ml Documented by: Azithromycin 500 mg/ Dextrose 250 mls @ 250 mls/hr IV Q24H [facility]; Protocol Stop: 07/07/21 09:59 Last Infusion: 07/05/21 13:32 Dose: Infused Documented by: Ondansetron HCl (Ondansetron 4 Mg/2 Ml Vial) 4 mg IV Q6HP PRN PRN Reason: Nausea And Vomiting Senna (Sennosides 1 Tablet) 2 tab PO HS [facility] Last Admin: 07/04/21 22:03 Dose: 2 tab Documented by: Sodium Chloride (0.9 % Sodium Chloride 10 Ml Syringe) 10 ml IV Q8 [facility] Last Admin: 07/05/21 04:59 Dose: 10 ml Documented by: ABG Interpretation ABG results: 07/03/21 03:05 ABG Methemoglobin 0.3 L VBG pH 7.49 H VBG pCO2 34.5 L VBG pO2 132.6 H VBG HCO3 25.7 VBG Total CO2 26.8 VBG O2 Saturation 93.5 H VBG Base Excess 3 H A/P Narrative A/P Narrative: Assessment: 46-year-old male recently diagnosed with COVID-19 on 06/13/2021 presented to the ED for progressive dyspnea now admitted for acute hypoxic respiratory failure likely secondary to ARDS due to recent COVID-19. Subsequent SARS-CoV-2 PCR were negative x2. Respiratory panel negative for influenza, parainfluenza, human metapneumovirus, adenovirus. Rhinovirus was detected however that would be an unusual cause for the patient's presentation. CTA chest was negative for pulmonary embolism however positive for moderate widespread pneumonia. #Acute hypoxic respiratory failure #Bilateral pneumonia with concern for ARDS #Recent COVID-19 (06/13/2021) -positive [place] 06/13 -negative [place] and [place] on 07/03 #Positive respiratory panel for rhinovirus -seems unlikely to explain the patient's presentation #Hyponatremia #Elevated procalcitonin #Negative nasal MRSA PCR #Concern for unspecified autoimmune disease -details are unclear however previously on Rituximab but discontinued it Plan -Dexamethasone 20 mg IV daily for 5 days then decrease to 10 mg daily for 5 days then taper if the patient improves. -Oxygen supplementation as needed. -Cefepime and azithromycin for now. -Sputum bacterial and fungal cultures. -YUMIKO and ANCA w/ reflex. -Sputum and blood cultures. -Resumed home Cymbalta. -Follow CBC and chemistry panel. -Pulmonology consulted. -DVT ppx: lovenox -Code status: Sustainability Engineer Spent With Patient Time: Total time spent is greater than 50% in coordination of care (as documented) at patient's floor/unit and/or counseling patient: QUALITY VTE Deep Vein Thrombosis/Pulmonary Embolism Present on Admission: No
[2021-07-05] MEDS: SENNOSIDES 1 TABLET PO SCH (22:09)
[2021-07-06] MEDS: 0.9 % SODIUM CHLORIDE 10 ML SYRINGE IV SCH ×4 (05:31→22:02)
[2021-07-06] MEDS: CEFEPIME 2 GM VIAL IV SCH ×3 (05:31→22:01)
[2021-07-06 07:30] LABS: Hematocrit 39.2 % (40.1-51.0); Hemoglobin 12.7 g/dL (13.7-17.5); Mean Corpuscular HGB Conc 32.4 g/dL (31.0-36.0); Mean Platelet Volume 10.6 fL (7.4-10.4); Platelet Count 436 K/mcL (140-440); RBC 4.78 M/mcL (4.63-6.08); Red Cell Distribution Width 14.9 % (11.5-14.5); WBC 12.8 K/mcL (4.5-11.0)
[2021-07-06 07:48] LABS: ALT/SGPT 114 U/L (<40); AST/SGOT 145 U/L (<40); Albumin 2.4 gm/dL (3.2-5.2); Alkaline Phosphatase 186 U/L (39-117); Bilirubin,Direct < 0.2 mg/dL (0-0.3); Bilirubin,Total 0.2 mg/dL (0.1-1.0); Blood Urea Nitrogen 14 mg/dL (6-20); Calcium 8.3 mg/dL (8.6-10.4); Carbon Dioxide 24 mmol/L (22-30); Chloride 100 mmol/L (96-108); Globulin 2.4 gm/dL (2.2-3.7); Glomerular Filtration Rate 128; Glucose 153 mg/dL (70-105); Lactate Dehydrogenase 272 U/L (135-225); Triglycerides 232 mg/dL (<150)
[2021-07-06 08:37] LABS: Anisocytosis 1+ (None Seen); Band Neutrophils % 3 % (0-10); Lymphocytes % 5 % (15-49); Monocytes % (Manual) 5 % (1-12); Platelet Estimate NORMAL (Normal); RBC Morphology ABNORMAL (Normal); Reactive Lymphocytes 2 % (0-2); Segmented Neutrophils % 85 % (38-78)
[2021-07-06] MEDS: ENOXAPARIN 40 MG/0.4 ML SYRINGE SQ SCH (08:41)
[2021-07-06] MEDS: DEXAMETHASONE 10 MG/ML VIAL IV SCH (08:41)
[2021-07-06] MEDS: DULoxetine 30 MG CAPSULE PO SCH (08:41)
[2021-07-06] MEDS: DOCUSATE SODIUM 100 MG CAPSULE PO SCH ×2 (08:41→22:00)
[2021-07-06] MEDS: AZITHROMYCIN 500 MG in DEXTROSE 5% IN WATER 250 ML IV SCH (08:41)
--- NOTE | 2021-07-06 12:51 | Internal Med Progress Note ---
SUBJECTIVE Subjective Patient information: Note initiated : 07/06/21 at 12:51 pm Service Date, if different from initiated Date: [] Patient: Cash Ruvalcaba a 46 y/o M admitted on 07/03/21 for shortness of breath. Chief Complaint: [] Interval history: Mr. Ruvalcaba is a 46 year old with a history of possible autoimmune disease only undergoing work-up, and in 19 diagnosed at 06/13/21 with a SARS-CoV-2 PCR who presented to the ED for progressive shortness of breath. Patient was found to be hypoxic in the ED, initially requiring 6 L/min nasal cannula oxygen. Work-up in the ED included CBC which showed leukocytosis, chemistry panel showed hyponatremia, evaded D-dimer 1.14, chest x-ray showed bilateral pulmonary infiltrates. Patient also had a CTA of his chest which was negative for PE but consistent with COVID-19 pneumonia. Procalcitonin was 0.64, CRP 15.1. SARS-CoV-2 PCR, both ADAMS and PANTHER, resulted as not detected. Respiratory panel resulted as not detected for influenza A and B, parainfluenza, human metapneumovirus, adenovirus. Rhinovirus was detected. The patient was started on IV fluids, admitted for acute hypoxic respiratory failure secondary likely secondary to ARDS presumably secondary to recent COVID-19. 07/04: The patient was transferred to the PCU late yesterday for increased oxygen requirement, now on HFNC. Increased Dexamethasone to 20 mg IV and antibiotics to Cefepime and Azithromycin. Sputum cultures, including fungal cultures ordered, YUMIKO and ANCA ordered. Discussed with pulmonology at [facility] in [place]-no beds for transfer but recommended trying higher dose systemic steroid as ordered. TTE resulted-relatively normal ECHO. 07/05: The patient feels better today, down to 4 L/min, resumed home Cymbalta, continues on high dose Dexamethasone. 07/06: Afebrile overnight, on 4 L/min, feels very tired today. Increase in LFTs today, sputum bacterial and sputum cultures showing no growth. YUMIKO and ANCA workup pending. Physical exam General:46-year-old male in no distress. Head: Atraumatic, normal inspection. Eyes: normal appearance, no scleral icterus. Neck: full ROM Respiratory: nasal canula oxygen in no apparent respiratory distress. Cardiovascular: normal rate and rhythm, S1, S2. GI/Abdominal: soft, nontender, no guarding. Extremities: full range of motion, nontender. Neurological: CN II-XII intact, intact motor, intact sensation. Psychiatric: lethargic Skin: warm, normal color Constitutional Vitals: Vital Signs Temp Pulse Resp BP Pulse Ox 97.4 F 61 24 H 116/82 94 07/06/21 04:01 07/06/21 12:18 07/06/21 12:18 07/06/21 12:01 07/06/21 12:18 Period Temp Pulse Resp BP Sys/Rosa Pulse Ox Last 24 Hr 97.0 F-97.4 F 49-77 18-36 104-130/62-90 87-99 Intake and Output 07/05/21 07/06/21 07/06/21 21:59 05:59 13:59 Intake Total 240 240 250 Output Total 175 101 500 Balance 65 139 -250 Weight 89.811 kg Intake & Output: Intake & Output 07/05/21 07/06/21 07/06/21 21:59 05:59 13:59 Intake Total 240 240 250 Output Total 175 101 500 Balance 65 139 -250 Weight 89.811 kg Intake: IV 250 Zithromax 500 mg In Dextrose 5% 250 in Water 250 ml @ 250 mls/hr IV Q24H [facility] Rx#:[id number] Oral 240 240 Output: Void Amount 175 100 500 # of times incontinent of urine 1 Other: Meal Dinner Percent of Meal Consumed 25% Nourishment/Supplement name Refused the Magic cup,provided strawberry ice cream 2 cups et 2 string tucker Peanut butter sandwich-100% Urine Appearance Clear Clear Clear Urine Color Dark Yellow Dark Yellow Dark Yellow Urine Odor Normal OBJ DATA Labs CBC & Chem 7: 07/06/21 05:07 07/06/21 05:07 Labs: Abnormal Lab Results 07/06/21 07/06/21 07/05/21 05:07 05:07 05:03 WBC 12.8 H RBC Hgb 12.7 L Hct 39.2 L RDW 14.9 H MPV 10.6 H Seg Neutrophils % 85 H Lymphocytes % 5 L RBC Morphology Abnormal A Anisocytosis 1+ A Sodium Creatinine 0.5 L 0.5 L Glucose 153 H 240 H Calcium 8.3 L 8.3 L GGT 122 H 96 H AST 145 H 49 H ALT 114 H 65 H Alkaline Phosphatase 186 H 174 H Lactate Dehydrogenase 272 H 239 H C-Reactive Protein 3.60 H NT-Pro-B Natriuret Pep Total Protein 4.8 L 4.6 L Albumin 2.4 L 2.2 L Albumin/Globulin Ratio 0.9 L Triglycerides 232 H 07/05/21 07/04/21 07/04/21 05:03 05:17 05:17 WBC 11.7 H 14.9 H RBC 4.39 L 4.62 L Hgb 11.7 L 12.2 L Hct 36.0 L 37.1 L RDW 14.7 H 14.6 H MPV 10.8 H 10.6 H Seg Neutrophils % 85 H 87 H Lymphocytes % 7 L 7 L RBC Morphology Abnormal A Anisocytosis 1+ A Sodium 129 L Creatinine 0.5 L Glucose 207 H Calcium 8.4 L GGT 109 H AST 99 H ALT 71 H Alkaline Phosphatase 187 H Lactate Dehydrogenase 259 H C-Reactive Protein 7.80 H NT-Pro-B Natriuret Pep Total Protein 4.9 L Albumin 2.1 L Albumin/Globulin Ratio 0.8 L Triglycerides 07/03/21 17:40 WBC RBC Hgb Hct RDW MPV Seg Neutrophils % Lymphocytes % RBC Morphology Anisocytosis Sodium Creatinine Glucose Calcium GGT AST ALT Alkaline Phosphatase Lactate Dehydrogenase C-Reactive Protein NT-Pro-B Natriuret Pep 198.3 H Total Protein Albumin Albumin/Globulin Ratio Triglycerides Meds: Medications Acetaminophen (Acetaminophen 325 Mg Tablet) 650 mg PO Q4-6HP PRN; Protocol PRN Reason: Per Pain Protocol Last Admin: 07/04/21 22:03 Dose: 650 mg Documented by: Albuterol Sulfate (Albuterol Sulfate 2.5 Mg/3 Ml Nebulizer) 2.5 mg NEB Q2HP PRN PRN Reason: Shortness Of Breath Last Admin: 07/04/21 16:31 Dose: 2.5 mg Documented by: Cefepime HCl (Cefepime 2 Gm Vial) 2 gm IV Q8H NGOC; Protocol Stop: 07/09/21 14:59 Last Admin: 07/06/21 05:31 Dose: 2 gm Documented by: Dexamethasone (Dexamethasone 10 Mg/Ml Vial) 20 mg IV DAILY NGOC Stop: 07/08/21 09:01 Last Admin: 07/06/21 08:41 Dose: 20 mg Documented by: Dexamethasone (Dexamethasone 10 Mg/Ml Vial) 10 mg IV DAILY [facility] Stop: 07/13/21 09:01 Docusate Sodium (Docusate Sodium 100 Mg Capsule) 100 mg PO BID [facility] Last Admin: 07/06/21 08:41 Dose: 100 mg Documented by: Duloxetine HCl (Duloxetine 30 Mg Capsule) 60 mg PO DAILY [facility] Last Admin: 07/06/21 08:41 Dose: 60 mg Documented by: Enoxaparin Sodium (Enoxaparin 40 Mg/0.4 Ml Syringe) 40 mg SQ DAILY [facility] Last Admin: 07/06/21 08:41 Dose: 40 mg Documented by: Guaifenesin/Codeine Phosphate (Guaifenesin/Codeine 10 Ml Udc) 10 ml PO Q6HP PRN PRN Reason: Cough Last Admin: 07/05/21 02:02 Dose: 10 ml Documented by: Azithromycin 500 mg/ Dextrose 250 mls @ 250 mls/hr IV Q24H [facility]; Protocol Stop: 07/07/21 09:59 Last Infusion: 07/06/21 10:48 Dose: Infused Documented by: Ondansetron HCl (Ondansetron 4 Mg/2 Ml Vial) 4 mg IV Q6HP PRN PRN Reason: Nausea And Vomiting Senna (Sennosides 1 Tablet) 2 tab PO HS [facility] Last Admin: 07/05/21 22:09 Dose: 2 tab Documented by: Sodium Chloride (0.9 % Sodium Chloride 10 Ml Syringe) 10 ml IV Q8 [facility] Last Admin: 07/06/21 05:31 Dose: 10 ml Documented by: ABG Interpretation ABG results: 07/03/21 03:05 ABG Methemoglobin 0.3 L VBG pH 7.49 H VBG pCO2 34.5 L VBG pO2 132.6 H VBG HCO3 25.7 VBG Total CO2 26.8 VBG O2 Saturation 93.5 H VBG Base Excess 3 H A/P Narrative A/P Narrative: Assessment: 46-year-old male recently diagnosed with COVID-19 on 06/13/2021 presented to the ED for progressive dyspnea now admitted for acute hypoxic respiratory failure likely secondary to ARDS due to recent COVID-19. Subsequent SARS-CoV-2 PCR were negative x2. Respiratory panel negative for influenza, parainfluenza, human metapneumovirus, adenovirus. Rhinovirus was detected however that would be an unusual cause for the patient's presentation. CTA chest was negative for pulmonary embolism however positive for moderate widespread pneumonia. #Acute hypoxic respiratory failure #Bilateral pneumonia with concern for ARDS #Recent COVID-19 (06/13/2021) -positive Panora 06/13 -negative Panora and Adams on 07/03 #Positive respiratory panel for rhinovirus -seems unlikely to explain the patient's presentation #Elevated LFTs #Negative nasal MRSA PCR #Concern for unspecified autoimmune disease -details are unclear however previously on Rituximab Plan -Dexamethasone 20 mg IV daily for 5 days then decrease to 10 mg daily for 5 days then taper if the patient improves. -Oxygen supplementation as needed. -Cefepime and azithromycin for now. -Follow sputum bacterial and fungal cultures. -Follow YUMIKO and ANCA w/ reflex. -Follow LFTs, change abx if continue to trend up. -Sputum and blood cultures. -Home Cymbalta. -Follow CBC and chemistry panel. -Pulmonology was consulted. -DVT ppx: lovenox -Code status: Full -Disposition: probably home, early follow up with Rheumatology (Dr. Verduzco) in [place]. Time Spent With Patient Time: Total time spent is greater than 50% in coordination of care (as documented) at patient's floor/unit and/or counseling patient: QUALITY VTE Deep Vein Thrombosis/Pulmonary Embolism Present on Admission: No
[2021-07-06] MEDS: SENNOSIDES 1 TABLET PO SCH (22:01)
[2021-07-07] MEDS: 0.9 % SODIUM CHLORIDE 10 ML SYRINGE IV SCH ×2 (05:29→12:33)
[2021-07-07] MEDS: CEFEPIME 2 GM VIAL IV SCH ×2 (05:30→13:18)
[2021-07-07 07:48] LABS: ALT/SGPT 152 U/L (<40); AST/SGOT 123 U/L (<40); Albumin 2.4 gm/dL (3.2-5.2); Albumin/Globulin Ratio 0.9 (1.0-2.3); Alkaline Phosphatase 175 U/L (39-117); Bilirubin,Direct < 0.2 mg/dL (0-0.3); Bilirubin,Total 0.3 mg/dL (0.1-1.0); Blood Urea Nitrogen 17 mg/dL (6-20); Calcium 8.6 mg/dL (8.6-10.4); Carbon Dioxide 25 mmol/L (22-30); Chloride 96 mmol/L (96-108); Globulin 2.7 gm/dL (2.2-3.7); Glomerular Filtration Rate 119; Glucose 130 mg/dL (70-105); Lactate Dehydrogenase 258 U/L (135-225); Phosphorous 2.8 mg/dL (2.5-4.5); Triglycerides 112 mg/dL (<150); Uric Acid 2.9 mg/dL (2.5-8.0)
[2021-07-07] MEDS: AZITHROMYCIN 500 MG in DEXTROSE 5% IN WATER 250 ML IV SCH (09:00)
[2021-07-07] MEDS: DOCUSATE SODIUM 100 MG CAPSULE PO SCH (09:38)
[2021-07-07] MEDS: ENOXAPARIN 40 MG/0.4 ML SYRINGE SQ SCH (09:38)
[2021-07-07] MEDS: DEXAMETHASONE 10 MG/ML VIAL IV SCH (09:39)
[2021-07-07] MEDS: DULoxetine 30 MG CAPSULE PO SCH (09:41)
--- NOTE | 2021-07-07 12:49 | Discharge Summary ---
Discharge Provider Provider Patient information: Note initiated : 07/07/21 at 12:34 pm Service Date, if different from initiated Date: [] Patient: Cash Ruvalcaba 46 y/o M admitted on 07/03/21 for shortness of breath. Chief Complaint: [] Date of admission: 07/03/21 03:39 Discharge date: 07/07/21 Primary care physician: PCP No Consults: 07/03/21 Consult to Physician [CONS] Stat Comment: Consulting Provider: Brary Mancilla Reason For Exam: Physician to Consult Discharge Meds Discharge Medications Home Medications albuterol sulfate 90 mcg/actuation aerosol inhaler 2 puff INHALATION .q4-6h PRN #8.5 g 06/13/21 [Rx Confirmed 07/03/21 Last Taken 07/02/21 08:00] duloxetine [Cymbalta] 60 mg PO QDAY 07/04/21 [History Confirmed 07/04/21 Last Taken Unknown] hydroxychloroquine [Plaquenil] 600 mg PO QDAY 07/04/21 [History Confirmed 07/04/21 Last Taken Unknown] COURSE Hospital Course Hospital course: Mr. Ruvalcaba is a 46 year old with a history of possible autoimmune disease only undergoing work-up, and in 19 diagnosed at 06/13/21 with a SARS-CoV-2 PCR who presented to the ED for progressive shortness of breath. Patient was found to be hypoxic in the ED, initially requiring 6 L/min nasal cannula oxygen. Work-up in the ED included CBC which showed leukocytosis, chemistry panel showed hyponatremia, evaded D-dimer 1.14, chest x-ray showed bilateral pulmonary infiltrates. Patient also had a CTA of his chest which was negative for PE but consistent with COVID-19 pneumonia. Procalcitonin was 0.64, CRP 15.1. SARS-CoV-2 PCR, both ADAMS and PANTHER, resulted as not detected. Respiratory panel resulted as not detected for influenza A and B, parainfluenza, human metapneumovirus, adenovirus. Rhinovirus was detected. Nasal MRSA PCR was negative. The patient was admitted Dexamethasone, Ceftriaxone, Azithromycin, IV fluid and nasal canula oxygen supplementation. 07/04: The patient was transferred to the PCU late yesterday for increased oxygen requirement, now on HFNC. I discussed the patient with pulmonology at [facility] in [place]. Pulmonology recommended increasing Dexamethasone from 6 mg to 20 mg IV for 5 day then decreasing to 10 mg daily for another five days followed by a long steroid taper, also recommended broader antibiotic coverage. Increased Dexamethasone as recommended, discontinuing Ceftriaxone and starting Cefepime, continued Azithromycin. Ordered sputum bacterial and fungal cultures as well as YUMIKO and ANCA w/ reflex. Urgent TTE interpretation was fairly unremarkable. 07/05: The patient feels better today, down to 4 L/min, resumed home Cymbalta, continues on high dose Dexamethasone, will keep in the PCU for close monitoring. 07/06: Afebrile overnight, on 4 L/min, feels very tired today. Increase in LFTs today, sputum bacterial and sputum cultures showing no growth. YUMIKO and ANCA workup pending. 07/07: High grade tempts overnight, t-max 99.4, increased respiratory rate, and work of breathing, oxygen requirement up to 12 L/min via oxymask. Discussed transfer with [facility] in [place], the patient was accepted by hospital medicine for transfer. Will transport by flight to [facility]. Physical exam Head: Atraumatic, normal inspection. Eyes: normal appearance, no scleral icterus. Neck: full ROM Respiratory: oxy mask, tachypnea, appears more tired than yesterday Cardiovascular: normal rate and rhythm, S1, S2. GI/Abdominal: soft, nontender, no guarding. Extremities: full range of motion, nontender. Neurological: CN II-XII intact, intact motor, intact sensation. Skin: warm, normal color Discharge diagnosis: Acute hypoxic respiratory failure Secondary discharge diagnosis: Concern for post COVID ARDS Sjogren's syndrome Undifferentiated connective tissue disease Time Spent with Patient Time attestation: Total time spent providing and/or coordinating discharge services: EXAM Constitutional Vitals: Temp Pulse Resp BP Pulse Ox 99.3 F H 83 26 H 107/61 94 07/07/21 08:01 07/07/21 06:13 07/07/21 10:01 07/07/21 10:01 07/07/21 10:01 Discharge Data Data Completed and Pending Labs on day of discharge: Labs from last 24 hours 07/07/21 06:37 Sodium 132 L Potassium 4.9 Chloride 96 Carbon Dioxide 25 Anion Gap 11.0 BUN 17 Creatinine 0.6 L GFR Calculation 119 Glucose 130 H Uric Acid 2.9 Calcium 8.6 Phosphorus 2.8 Magnesium 2.2 Total Bilirubin 0.3 Direct Bilirubin < 0.2 GGT 130 H AST 123 H ALT 152 H Alkaline Phosphatase 175 H Lactate Dehydrogenase 258 H Total Protein 5.1 L Albumin 2.4 L Globulin 2.7 Albumin/Globulin Ratio 0.9 L Triglycerides 112 Preliminary micro results at discharge 07/03/21 17:50 Blood Culture - Preliminary Blood 07/03/21 17:40 Blood Culture - Preliminary Blood 07/05/21 13:34 Fungal Smear - Preliminary Sputum source - Induced Discharge Plan Patient/Caregiver Discharge Instructions Activity: increase activity as tolerated Diet: Regular Diet Prescriptions: Continued albuterol sulfate [ProAir HFA] 90 mcg/actuation HFA aerosol inhaler 2 puff inhalation .q4-6h PRN (Reason: cough, shortness of breath, wheezing) Qty: 8.5 RF: 0 hydroxychloroquine [Plaquenil] 200 mg Tablet 600 mg PO QDAY RF: 0 duloxetine [Cymbalta] 60 mg Capsule,Delayed Release(Dr/Ec) 60 mg PO QDAY RF: 0 Follow Up Plan Follow up with: No,PCP [Primary Care Provider] - Patient Disposition: [facility] Prognosis: Serious Overall status at discharge: patient is not back to baseline Discharge Orders: Discharge Order (Routine); Ordered 07/07/21 Ordered By: Barry OLIVEIRA VTE Deep Vein Thrombosis/Pulmonary Embolism Present on Admission: No
[2021-07-09] MEDS ORDERED: DEXAMETHASONE 10 MG/ML VIAL IV SCH (09:00)
[2021-07-15 18:52] LABS: Complement C3C 151 mg/dL (82-185); Complement C4C 44 mg/dL (15-53); Rheumatoid Factor <14 IU/mL (<14)
== END 2021-07-07 13:50 | disposition short-term general hospital (02) | DRG 193 ==
LOC: ED 23:29 → MEDSUR 07-03 03:39 → ICU 07-03 15:10
PROVIDERS: ADMIT Internal Medicine; ATTEND Internal Medicine